=== PATIENT | male | born 1955 | race Caucasian/White ===

== ENCOUNTER → 2022-03-09 | Outpatient (CLI) | payer MEDICARE, BC, OTHER | LOC: M LABSMTC 11:12 | PROVIDERS: ATTEND Surgery Vascular Surgery | DX: I73.9 Peripheral vascular disease, unspecified (principal); Z11.52 Encounter for screening for COVID-19 ==

== ENCOUNTER → 2023-04-09 | Outpatient (CLI) | payer MEDICARE, BC, OTHER | LOC: M RAD 13:18 | PROVIDERS: ATTEND Surgery Vascular Surgery | DX: I73.9 Peripheral vascular disease, unspecified (principal) ==

== ENCOUNTER → 2024-05-05 | Outpatient (CLI) | payer MEDICARE, BC | LOC: M RAD 11:54 | PROVIDERS: ATTEND Physician Assistant | DX: I73.9 Peripheral vascular disease, unspecified (principal) ==